=== PATIENT | male | born 1990 | race Caucasian/White ===

== ENCOUNTER 2017-03-04 06:38 | Emergency (ER) | payer SELFPAY ==
[~2017-03-04] VITALS: Ht 182.9 cm; Wt 72.6 kg
--- NOTE | 2017-03-04 06:51 | NUR ---
[facility] - FOR PSYCH ADMISSION
[2017-03-04] MEDS ORDERED: OLANZAPINE 5 MG TABLET PO ONE (07:00)
[2017-03-04] MEDS ORDERED: OLANZAPINE 5 MG TABLET ONE (07:02)
--- NOTE | 2017-03-04 07:09 | NUR ---
ENDORSED TO DALILA ROONEY FOR JEISON.
[2017-03-04 07:11] LABS: BASOPHILS % (AUTO) 0.3 % (0.0-2.0); HEMATOCRIT 49 % (39-51); HEMOGLOBIN 16.7 g/dL (13.5-17.5); LYMPHOCYTES # (AUTO) 1.5 /CMM (0.8-4.8); LYMPHOCYTES % (AUTO) 11.1 % (20.0-44.0); MEAN CORPUSCULAR HEMOGLOBIN 32 PG (26.0-33.0); MEAN CORPUSCULAR HGB CONC 34 g/dl (31.0-36.0); MEAN CORPUSCULAR VOLUME 93 fL (80-96); MONOCYTES # (AUTO) 0.7 /CMM (0.1-1.30); MONOCYTES % (AUTO) 5.2 % (2.0-12.0); NEUTROPHILS # (AUTO) 11.4 /CMM (1.8-8.9); NEUTROPHILS % (AUTO) 83.4 % (43.0-81.0); PLATELET COUNT (AUTO) 397 /CMM (150-450); RDW COEFFICIENT OF VARIATION 13.2 (11.5-15.0); RED BLOOD CELL COUNT(AUTO) 5.29 MIL/uL (4.5-6.0); WHITE BLOOD COUNT (AUTO) 13.7 K/uL (4.3-11.0)
[2017-03-04 07:21] LABS: CALCIUM, SERUM 9.7 mg/dL (8.5-10.1); CARBON DIOXIDE 21 mmol/L (21-32); CHLORIDE 105 mmol/L (98-107); GLUCOSE 106 mg/dL (74-106); POTASSIUM 3.2 mmol/L (3.5-5.1); SODIUM SERUM 141 mmol/L (136-145); UREA NITROGEN, BLOOD 13 mg/dL (7-18)
[2017-03-04 07:28] LABS: ALANINE AMINOTRANSFERASE 26 U/L (12-78); ALBUMIN 4.8 g/dL (3.4-5.0); ALCOHOL, BLOOD < 3 mg/dL (0-0); ALKALINE PHOSPHATASE 91 U/L (46-116); ASPARTATE AMINOTRANSFERASE 15 U/L (15-37); BILIRUBIN,DIRECT 0.2 mg/dL (0.0-0.2); BILIRUBIN,TOTAL 0.9 mg/dL (0.2-1.0); TOTAL PROTEIN, SERUM 8.6 g/dL (6.4-8.2)
[2017-03-04 07:31] LABS: ACETAMINOPHEN 0 ug/ml (10-30); SALICYLATE 1.6 mg/dL (2.8-20.0)
--- NOTE | 2017-03-04 07:47 | NUR ---
elizabeth castillo called for eval per dr webb
--- NOTE | 2017-03-04 08:02 | NUR ---
PSYCH EVAL CANCELLED BY DR [facility] AWARE
[2017-03-04 08:21] LABS: APPEARANCE,URINE SL CLOUDY (CLEAR); BILIRUBIN,URINE 1+ (NEGATIVE); BLOOD, URINE NEGATIVE Ery/uL (NEGATIVE); COLOR,URINE DARK YELLO (YELLOW); KETONES,URINE 3+ (NEGATIVE); LEUKOCYTE ESTERASE ,URINE NEGATIVE (NEGATIVE); NITRITE, URINE NEGATIVE (NEGATIVE); PH,URINE 6.5 (5.0-8.0); PROTEIN,URINE TRACE mg/dl (NEGATIVE); UGLUCOSE NEGATIVE (NEGATIVE)
[2017-03-04 08:57] LABS: BACTERIA,URINE Rare /HPF (None Seen); CALCIUM OXALATE CRYSTALS,UR Moderate /HPF (None Seen); RBC,URINE 0-2 /HPF (0-2); SQUAMOUS EPITHELIAL CELL,UR Few /HPF (None Seen)
[2017-03-04 09:35] VITALS: BP 144/77
--- NOTE | 2017-03-04 09:35 | NUR ---
Patient discharged to home in stable condition. Written and verbal after care instructions given. Patient verbalizes understanding of instruction.
== END 2017-03-04 09:36 | disposition home or self-care (01) ==
LOC: ER 06:42
DX: F29 Unspecified psychosis not due to a substance or known physiological condition (principal); Z59.0 Homelessness
CPT/HCPCS: 36415; 80048-TC; 80076-TC; 80305; 81000-TC; 85025-TC; A4606; G0480; Z7610

== ENCOUNTER 2017-04-16 07:12 | Emergency (ER) | payer SELFPAY ==
[~2017-04-16] VITALS: Ht 182.9 cm; Wt 68.0 kg
[2017-04-16 07:24] VITALS: BP 140/105
--- NOTE | 2017-04-16 07:57 | NUR ---
DR DESHAWN BLAKE NOTIFIED
== END 2017-04-16 07:59 | disposition left against medical advice (07) ==
LOC: ER 07:14
DX: Z53.21 Procedure and treatment not carried out due to patient leaving prior to being seen by health care provider (principal)
CPT/HCPCS: A4606; Z7610

== ENCOUNTER 2017-08-14 16:29 | Emergency (ER) | payer MEDICAID ==
[~2017-08-14] VITALS: Ht 177.8 cm; Wt 79.4 kg
--- NOTE | 2017-08-14 16:50 | NUR ---
URINE OBTAINED SENT TO LAB
[2017-08-14 16:56] LABS: EOSINOPHILS % (AUTO) 0.2 % (0.0-6.0); HEMOGLOBIN 14.3 g/dL (13.5-17.5); LYMPHOCYTES # (AUTO) 1.2 /CMM (0.8-4.8); MONOCYTES # (AUTO) 0.6 /CMM (0.1-1.30); RDW COEFFICIENT OF VARIATION 11.6 (11.5-15.0)
[2017-08-14 17:03] LABS: CALCIUM, SERUM 8.5 mg/dL (8.5-10.1); CARBON DIOXIDE 31 mmol/L (21-32); CHLORIDE 106 mmol/L (98-107); CREATININE 1.2 mg/dL (0.6-1.3); GLUCOSE 101 mg/dL (74-106); POTASSIUM 3.7 mmol/L (3.5-5.1); SODIUM SERUM 142 mmol/L (136-145); UREA NITROGEN, BLOOD 14 mg/dL (7-18)
[2017-08-14 17:07] LABS: ALCOHOL, BLOOD < 3 mg/dL (0-0)
[2017-08-14 17:15] LABS: BASOPHILS % (AUTO) 0.1 % (0.0-2.0); HEMATOCRIT 39 % (39-51); LYMPHOCYTES % (AUTO) 11.1 % (20.0-44.0); MEAN CORPUSCULAR HGB CONC 37 g/dl (31.0-36.0); MEAN CORPUSCULAR VOLUME 89 fL (80-96); MONOCYTES % (AUTO) 5.5 % (2.0-12.0); NEUTROPHILS % (AUTO) 83.1 % (43.0-81.0); PLATELET COUNT (AUTO) 245 /CMM (150-450); RED BLOOD CELL COUNT(AUTO) 4.37 MIL/uL (4.5-6.0); WHITE BLOOD COUNT (AUTO) 10.8 K/uL (4.3-11.0)
--- NOTE | 2017-08-14 17:49 | NUR ---
pt resting comfortably. nad noted.
--- NOTE | 2017-08-14 18:38 | NUR ---
PER SUY[place]A RN WAITING ON [place] FOR CALLBACK FOR TRANSFER
--- NOTE | 2017-08-14 19:19 | NUR ---
received report from tina Cintron for caitlin.
--- NOTE | 2017-08-14 20:52 | NUR ---
[facility] TRANSPORT [facility] BEDSIDE FOR REPORT AND PT TRANSFER ONTO EMS GURNEY. VSS UPON DISCHARGE. REPORT GIVEN TO EMS FOR JEISON.
--- NOTE | 2017-08-14 20:53 | NUR ---
Patient Tranfers to outside Facility Physician:WYATT Location:[facility]
[2017-08-14 20:57] VITALS: BP 114/68
== END 2017-08-14 21:22 ==
LOC: ER 16:30
DX: R45.851 Suicidal ideations (principal); F32.9 Major depressive disorder, single episode, unspecified; Z59.0 Homelessness; Z76.5 Malingerer [conscious simulation]
CPT/HCPCS: 36415; 80048-TC; 80305; 85025-TC; A4606; G0480; Z7610

== ENCOUNTER 2018-05-01 20:37 | Emergency (ER) | payer MEDICAID ==
--- NOTE | 2018-05-01 20:54 | NUR ---
pt called for triage, no answer.
--- NOTE | 2018-05-01 21:04 | NUR ---
2nd call for pt, no one in ER [facility].
--- NOTE | 2018-05-01 21:15 | NUR ---
3RD CALL FOR PT, NO ANSWER, NO ONE IN [facility].
== END 2018-05-01 21:16 | disposition left against medical advice (07) ==
LOC: ER 20:45
DX: Z53.21 Procedure and treatment not carried out due to patient leaving prior to being seen by health care provider (principal)

== ENCOUNTER 2020-06-24 11:11 | Emergency (ER) | payer SELFPAY ==
[~2020-06-24] VITALS: Ht 177.8 cm; Wt 78.9 kg
[2020-06-24 11:18] VITALS: BP 145/93
--- NOTE | 2020-06-24 11:19 | NUR ---
Patient given written and verbal discharge instructions. Patient verbalizes understanding of instructions. Patient is ambulatory with steady gait. Refuses offer of [facility] placement. Patient given list of available shelters in surrounding area. refused to sign homeless waiver and discharge paper. Ambulatory with steady gait
== END 2020-06-24 11:18 | disposition home or self-care (01) ==
LOC: ER 11:13
DX: F10.10 Alcohol abuse, uncomplicated (principal); Y90.9 Presence of alcohol in blood, level not specified; Z60.2 Problems related to living alone